=== PATIENT | male | born 1965 | race Caucasian/White ===

== ENCOUNTER 2022-01-21 16:16 | Observation (INO) | payer BC, OTHER ==
[2022-01-21 16:53] LABS: #Basophils 0.1 thou/uL (0.0-0.2); #Eosinphils 0.2 thou/uL (0.0-0.7); #Lymphocytes 2.3 thou/uL (1.20-3.40); #Monocytes 0.9 thou/uL (0.11-0.59); #Neutrophils 6.6 thou/uL (1.40-6.50); %Basophils 0.7 % (0.0-1.0); %Eosinophils 2.2 % (0.0-10.0); %Lymphocytes 22.8 % (21.0-51.0); %Monocytes 8.9 % (0.0-10.0); %Neutrophils 65.4 % (42.0-75.0); Hemoglobin 16.4 g/dL (14.0-18.0); Mean Corpuscular HGB CONC 36.1 g/dL (32.0-36.0); Mean Platelet Volume 7.9 fL (7.4-10.4); Platelet Count 231 thou/uL (130-400); RBC Distribution Width 11.9 % (11.5-14.5); Red Blood Cell (RBC) Count 4.67 mill/uL (4.70-6.10)
[2022-01-21 17:14] LABS: ALT (SGPT) 37 U/L (8-55); AST (SGOT) 32 U/L (5-34); Albumin 4.5 g/dL (3.5-5.0); Alkaline Phosphatase 56 U/L (40-110); Anion Gap 14 mmol/L (10-20); BUN (Urea Nitrogen) 14 mg/dL (8.4-25.7); Bilirubin, Total 1.3 mg/dL (0.2-1.2); Calc. Creatinine Clearance 0 mL/min (70-130); Calcium 9.3 mg/dL (7.8-10.44); Carbon Dioxide 25 mmol/L (22-29); Chloride 108 mmol/L (98-107); Globulin 2.8 g/dL (2.4-3.5); Glucose 117 mg/dL (70-105); Potassium 3.9 mmol/L (3.5-5.1); Protein, Total 7.3 g/dL (6.0-8.3); Sodium 143 mmol/L (136-145)
[2022-01-21] MEDS ORDERED: Nitroglycerin 2% Ointment 1 INCH/1 GM Packet ONE (17:29)
[2022-01-21] MEDS ORDERED: Aspirin 325 MG TAB ONE (17:29)
[2022-01-21 17:53] LABS: Lipase 68 U/L (8-78)
[2022-01-21 17:54] LABS: CK (CPK) 287 U/L (30-200)
[2022-01-21] MEDS ORDERED: Ondansetron PF 4 MG/2 ML Vial IVP PRN (18:14)
[2022-01-21] MEDS ORDERED: HYDROcodone/Acetaminophen 5/325 mg Tablet PO PRN (18:14)
[2022-01-21] MEDS ORDERED: HYDROcodone/Acetaminophen 7.5/325 mg Tablet PO PRN (18:14)
[2022-01-21] MEDS ORDERED: Guaifenesin DM 100-10/5 ML UDCUP PO PRN (18:14)
[2022-01-21] MEDS ORDERED: Acetaminophen 325 MG TAB PO PRN (18:14)
[2022-01-21] MEDS ORDERED: Senokot S 8.6-50 MG TAB PO PRN (18:14)
[2022-01-21] MEDS ORDERED: Bisacodyl 5 MG TAB PO PRN (18:14)
[2022-01-21] MEDS ORDERED: Lorazepam 2 MG/ML VIAL IM PRN (18:20)
[2022-01-21] MEDS ORDERED: Ondansetron ODT 4 MG TAB PO PRN (18:20)
[2022-01-21] MEDS ORDERED: Lorazepam 1 MG TAB PO PRN (18:20)
[2022-01-21] MEDS ORDERED: Electrolyte Replacement Protocol 1 EACH FS SCH (18:30)
[2022-01-21] MEDS ORDERED: Electrolyte Replacement Protocol FS PRN (18:45)
[2022-01-21] MEDS ORDERED: Multivit, Therapeutic 1 TAB PO SCH (18:45)
[2022-01-21] MEDS ORDERED: Enoxaparin Sodium 40 MG/0.4 ML SYRINGE SC SCH (18:45)
[2022-01-21] MEDS ORDERED: Folic Acid 1 MG TAB PO SCH (18:45)
[2022-01-21] MEDS ORDERED: Nicotine 21 MG PATCH TD SCH (20:00)
[2022-01-21] MEDS ORDERED: Thiamine HCl 200 MG/2 ML VIAL SLOW IVP SCH (20:00)
[2022-01-21 20:07] LABS: Magnesium 1.7 mg/dL (1.6-2.6)
[2022-01-21 20:12] LABS: Troponin I Less than 0.010 ng/mL (< 0.028)
[2022-01-21] MEDS ORDERED: hydrALAZINE 20 MG/ML VIAL SLOW IVP PRN (20:22)
[2022-01-21] MEDS ORDERED: Pantoprazole 40 MG VIAL IVP SCH (20:28)
[2022-01-21] MEDS: Lorazepam 1 MG TAB PO SCH (20:52)
[2022-01-21] MEDS: Sodium Chloride 0.9% 1,000 ML IV SCH (20:53)
[2022-01-21] MEDS ORDERED: Magnesium 2 GM/50 ML(in water) 2 GM in Premix Bag 1 BAG IVPB SCH (21:15)
[2022-01-21 21:16] VITALS: BMI 32.5
[2022-01-21 23:24] LABS: Troponin I Less than 0.010 ng/mL (< 0.028)
[2022-01-21] MEDS ORDERED: Sodium Chloride 0.9% 1,000 ML IV SCH (23:30)
[2022-01-22 00:16] LABS: SARS-CoV-2 PCR by NAA Not Detected (NotDetected)
[2022-01-22 00:42] LABS: Amphetamine Not Detected (NotDetected); Barbiturates Screen Not Detected (NotDetected); Benzodiazepine Screen Not Detected (NotDetected); Cocaine Metabolite Screen Not Detected (NotDetected); Methadone Not Detected (NotDetected); Methamphetamine Not Detected (NotDetected); Opiate Screen Not Detected (NotDetected); Oxycodone Screen Not Detected (NotDetected); Phencyclidine (PCP) Not Detected (NotDetected); THC/Cannabinoid Screen Not Detected (NotDetected); Tricyclic Screen Not Detected (NotDetected)
[2022-01-22] MEDS: Lorazepam 1 MG TAB PO SCH ×2 (01:21→07:59)
[2022-01-22 05:22] LABS: ALT (SGPT) 27 U/L (8-55); AST (SGOT) 21 U/L (5-34); Albumin 3.6 g/dL (3.5-5.0); Alkaline Phosphatase 43 U/L (40-110); Anion Gap 13 mmol/L (10-20); BUN (Urea Nitrogen) 16 mg/dL (8.4-25.7); Bilirubin, Total 0.8 mg/dL (0.2-1.2); Calc. Creatinine Clearance 104 mL/min (70-130); Calcium 8.4 mg/dL (7.8-10.44); Carbon Dioxide 22 mmol/L (22-29); Chloride 107 mmol/L (98-107); Globulin 2.1 g/dL (2.4-3.5); Glucose 98 mg/dL (70-105); Magnesium 2.2 mg/dL (1.6-2.6); Potassium 3.5 mmol/L (3.5-5.1); Protein, Total 5.7 g/dL (6.0-8.3); Sodium 138 mmol/L (136-145)
[2022-01-22 05:30] LABS: #Basophils 0.1 thou/uL (0.0-0.2); #Eosinphils 0.3 thou/uL (0.0-0.7); #Lymphocytes 2.8 thou/uL (1.20-3.40); #Neutrophils 4.4 thou/uL (1.40-6.50); %Basophils 1.1 % (0.0-1.0); %Eosinophils 3.3 % (0.0-10.0); %Lymphocytes 32.7 % (21.0-51.0); %Monocytes 11.3 % (0.0-10.0); %Neutrophils 51.7 % (42.0-75.0); Hemoglobin 12.9 g/dL (14.0-18.0); Mean Corpuscular Hemoglobin 35.6 pg (27.0-31.0); Mean Corpuscular Volume 98.8 fL (78.0-98.0); Platelet Count 171 thou/uL (130-400); RBC Distribution Width 11.9 % (11.5-14.5); Red Blood Cell (RBC) Count 3.62 mill/uL (4.70-6.10); White Blood Cell (WBC) Count 8.6 thou/uL (4.8-10.8)
[2022-01-22] MEDS ORDERED: Potassium Chloride 20 MEQ TAB PO SCH (06:45)
[2022-01-22] MEDS ORDERED: Regadenoson 0.4 MG/5 ML SYRINGE ONE (08:59)
[2022-01-22] MEDS ORDERED: Enoxaparin Sodium 40 MG/0.4 ML SYRINGE SC SCH (09:00)
[2022-01-22] MEDS ORDERED: Folic Acid 1 MG TAB PO SCH (09:00)
[2022-01-22] MEDS ORDERED: Aspirin Chewable 81 MG TAB PO SCH (09:00)
[2022-01-22] MEDS ORDERED: Multivit, Therapeutic 1 TAB PO SCH (09:00)
[2022-01-22] MEDS ORDERED: Pantoprazole 40 MG VIAL IVP SCH (09:00)
[2022-01-22 11:04] LABS: Syphilis Antibody Nonreactive (Nonreactive); Syphilis Antibody Index 0.03 S/CO (<1.00 Non-Reactive)
[2022-01-22 12:24] LABS: Potassium 3.9 mmol/L (3.5-5.1)
[2022-01-22] MEDS: Sodium Chloride 0.9% 1,000 ML IV SCH (12:37)
[2022-01-22 15:22] VITALS: BP 176/87; TEMP 98
[2022-01-22] MEDS ORDERED: Lorazepam 1 MG TAB PO PRN (18:20)
[2022-01-23] MEDS ORDERED: Lorazepam 1 MG TAB PO PRN (18:20)
[2022-01-23] MEDS ORDERED: Lorazepam 0.5 MG TAB PO SCH (20:00)
[2022-01-24] MEDS ORDERED: Lorazepam 0.5 MG TAB PO PRN (18:20)
[2022-01-24] MEDS ORDERED: Thiamine 100 MG TAB PO SCH (21:00)
== END 2022-01-22 15:48 | disposition home or self-care (01) ==
LOC: ERS 16:16 → 2SW 17:50
PROVIDERS: ADMIT Internal Medicine; ATTEND Internal Medicine
DX: R07.9 Chest pain, unspecified (principal); R00.2 Palpitations; I10 Essential (primary) hypertension; N40.0 Benign prostatic hyperplasia without lower urinary tract symptoms; F10.10 Alcohol abuse, uncomplicated; R17 Unspecified jaundice; F17.210 Nicotine dependence, cigarettes, uncomplicated; Z86.14 Personal history of Methicillin resistant Staphylococcus aureus infection; Z79.899 Other long term (current) drug therapy; Z88.1 Allergy status to other antibiotic agents; Z88.5 Allergy status to narcotic agent; Z89.021 Acquired absence of right finger(s); Z90.5 Acquired absence of kidney; Z20.822 Contact with and (suspected) exposure to COVID-19
CPT/HCPCS: 36415; 71045; 78452; 80053; 80306; 82550; 83690; 83735; 83880; 84484; 85025; 86780; 93005; 93017; 94760; 96372; 96374; 96375; 96376; A9500; C9113; G0378; J1650; J2405; J2785; J3411; J3475; J7050; Q0162; U0003; U0005

== ENCOUNTER 2022-06-25 14:52 | Emergency (ER) | payer BC ==
[2022-06-25 17:27] LABS: #Basophils 0.1 thou/uL (0.0-0.2); #Eosinphils 0.5 thou/uL (0.0-0.7); #Lymphocytes 2.3 thou/uL (1.20-3.40); #Monocytes 1.2 thou/uL (0.11-0.59); #Neutrophils 9.2 thou/uL (1.40-6.50); %Basophils 0.6 % (0.0-1.0); %Eosinophils 3.6 % (0.0-10.0); %Lymphocytes 17.5 % (21.0-51.0); %Neutrophils 69.3 % (42.0-75.0); Hemoglobin 15.7 g/dL (14.0-18.0); Mean Corpuscular Hemoglobin 33.8 pg (27.0-31.0); Mean Corpuscular Volume 96.4 fL (78.0-98.0); Mean Platelet Volume 8.4 fL (7.4-10.4); Platelet Count 224 thou/uL (130-400); RBC Distribution Width 11.9 % (11.5-14.5); Red Blood Cell (RBC) Count 4.63 mill/uL (4.70-6.10); White Blood Cell (WBC) Count 13.3 thou/uL (4.8-10.8)
[2022-06-25] MEDS ORDERED: HYDROcodone/Acetaminophen 5/325 mg Tablet ONE (18:36)
[2022-06-25 19:08] LABS: ALT (SGPT) 27 U/L (8-55); AST (SGOT) 22 U/L (5-34); Albumin 4.2 g/dL (3.5-5.0); Alkaline Phosphatase 65 U/L (40-110); Anion Gap 17 mmol/L (10-20); BUN (Urea Nitrogen) 23 mg/dL (8.4-25.7); Bilirubin, Total 1.1 mg/dL (0.2-1.2); Calc. Creatinine Clearance 0 mL/min (70-130); Carbon Dioxide 21 mmol/L (22-29); Chloride 110 mmol/L (98-107); Estimated GFR 81; Globulin 2.9 g/dL (2.4-3.5); Glucose 103 mg/dL (70-105); Protein, Total 7.1 g/dL (6.0-8.3); Sodium 144 mmol/L (136-145)
[2022-06-25] MEDS ORDERED: Ketorolac Tromethamine 30 MG/ML VIAL ONE (19:44)
== END 2022-06-25 20:00 | disposition home or self-care (01) ==
LOC: ERS 14:52
DX: M71.22 Synovial cyst of popliteal space [Baker], left knee (principal); M10.062 Idiopathic gout, left knee; I10 Essential (primary) hypertension; F17.210 Nicotine dependence, cigarettes, uncomplicated; Z79.899 Other long term (current) drug therapy
CPT/HCPCS: 36415; 71046; 80053; 85025; 86140; 96372; J1885